=== PATIENT | female | born 2005 | race Caucasian/White ===

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

== ENCOUNTER 2023-04-17 18:13 | Emergency (ER) | payer MEDICAID ==
[~2023-04-17] VITALS: Ht 165.1 cm; Wt 86.2 kg
[~2023-04-17 18:13] MED LIST: CEFD300C3 PO; FLUT9.9S NS; LORA1TAB59 PO
[2023-04-17 18:18] VITALS: BP 119/92
[2023-04-17] MEDS ORDERED: TETANUS,DIPTH,PERTUSS P/F (BOOSTRIX) 0.5 ML VIAL IM ONE (18:30)
[2023-04-17] MEDS ORDERED: LIDOCAINE 1% INJ 20 ML VIAL INJ ONE (18:30)
[2023-04-17] MEDS ORDERED: RX-TRIMETH/SULFA. 160-800 MG (BACTRIM DS) TAB PPK#2 PO STA (18:57)
[2023-04-17] MEDS ORDERED: RX-MUPIROCIN (BACTROBAN) 2% OINT 22 GM TUBE TOP STA (18:57)
--- NOTE | 2023-04-17 18:57 | ED Integumentary General ---
General Chief Complaint: Skin/Wound Problems Stated Complaint: FOREIGN BODY IN [place] Nursing Triage Note: PT AMBULATORY TO ROOM. STATES SHE BELIEVES A "BALL" PIECE FROM HER [place] RING IS STUCK UNDER THE SKIN. STATES SHE NOTICED PRIOR TO ARRIVAL WHILE CHANGING HER CLOTHES Source: patient History of Present Illness Date Seen by Provider: Apr 17, 2023 Time Seen by Provider: 18:21 Initial Comments PT ARRIVES VIA POV PT STATES THAT HALF OF HER [place] PIERCING IS EMBEDDED UNDER THE SKIN STATES SHE WAS CHANGING HER CLOTHES AND HALF OF IT CAME OFF AND THINKS THAT THE OTHER HALF IS EMBEDDED UNDER THE SKIN, AND SHE CAN FEEL IT. METAL PART OF RING AND POSSIBLY THE BALL ARE MISSING AND THAT IS WHAT PT THINKS IS STILL EMBEDDED OCCURRED JUST PRIOR TO ARRIVAL SHE HAS HAD THIS AREA PIERCED TWICE IN OCTOBER NO BLEEDING OR PAIN OR DRAINAGE. LAST TETANUS IS UNKNOWN NO CHRONIC MEDICAL PROBLEMS PCP: LEE Allergies and Home Medications Allergies Coded Allergies: Penicillins (Verified Allergy, Unknown, 06/10/21) Patient Home Medication List Home Medication List Reviewed: Yes Cefdinir (Cefdinir) 300 Mg Capsule, 300 MG PO BID Prescribed by: LUIS JORDAN on 06/10/21 0503 Fluticasone Propionate (Flonase Allergy Relief) 9.9 Ml [place].susp, 2 SPRAY NS DAILY Prescribed by: LUIS JORDAN on 06/10/21 0503 Loratadine/Pseudoephedrine (Claritin-D 12 Hour Tablet) 1 Each Tab.er.12h, 1 EACH PO BID Prescribed by: LUIS JORDAN on 06/10/21 0503 Sulfamethoxazole/Trimethoprim (Bactrim Ds Tablet) 1 Each Tablet, 1 EACH PO BID Prescribed by: LUIS JORDAN on 04/17/23 1858 Review of Systems Review of Systems Constitutional: no symptoms reported Gastrointestinal: see HPI Skin: see HPI Past Tnpymaz-Ottfiu-Hwzuuf Hx Immunizations Up To Date Tetanus Booster (TDap): Unknown First/Initial COVID19 Vaccinat: 03/03/2021 Second COVID19 Vaccination [place]: 03/23/2021 Past Medical History Surgeries: Yes (DENTAL ) Respiratory: No Cardiac: No Neurological: No Genitourinary: No Gastrointestinal: No Musculoskeletal: No Endocrine: No HEENT: Yes Chronic Ear Infection Psychosocial: No Integumentary: No Blood Disorders: No Physical Exam Vital Signs Vital Signs - First Documented 04/17/23 18:18 Temp 36.6 Pulse 88 Resp 20 B/P (MAP) 119/92 (101) Pulse Ox 97 Capillary Refill : General Appearance: WD/WN, no apparent distress Gastrointestinal: other (SUPERIOR ASPECT OF UMBILICUS AT PIERCING SITE, WITH WHAT FEELS LIKE RETAINED FOREIGN BODY . NO BLEEDING. NO DRAINAGE, NO ERYTHEMA OR TENDERNESS. ) Skin: normal color, warm/dry, tattoos/piercings, other ( ABOVE) Procedures/Interventions I&D : Site: UMBILICUS AREA Blade Size: 11 I & D Procedure: sterile dressing applied Progress AREA CLEANSED WITH BETASEPT INJECTED WITH 1% LIDOCAINE PLAIN SMALL INCISIONS MADE AT PIERCING SITES AREA EXPLORED AND UNABLE TO IDENTIFY ANY FOREIGN BODY. XRAY TAKEN, NO METALLIC FOREIGN BODY IDENTIFIED. Progress/Results/Core Measures Results/Orders My Orders Orders - LUIS JORDAN DO Dipht,Pertuss(Acell),Tet Adult (Boostrix (04/17/23 18:30) Lidocaine 1% Inj 20 Ml (Xylocaine 1% Inj (04/17/23 18:30) Abdomen/Kub 1view (04/17/23 18:46) Rx-Mupirocin 2% Oint (Rx-Bactroban) (04/17/23 18:57) Rx-Trimeth/Sulfameth Ds Tab (Rx-Bactrim/ (04/17/23 18:57) Medications Given in ED Vital Signs/I&O 04/17/23 18:18 Temp 36.6 Pulse 88 Resp 20 B/P (MAP) 119/92 (101) Pulse Ox 97 Blood Pressure Mean: 101 Progress Progress Note : Progress Note DISCUSSED ANTICIPATED COURSE, WOUND CARE, SYMPTOMATIC TREATMENT, NEED FOR FOLLOW UP AND RETURN PRECAUTIONS. DPT VACCINATION GIVEN Departure Impression Primary Impression: EXAM FOR POSSIBLE FOREIGN BODY OF SKIN Additional Impression: Cojidcmkcq-whetqzedi-qhqxejc (DPT) vaccination administered at current visit Disposition: 01 HOME, SELF-CARE Condition: Stable Departure-Patient Inst. Decision time for Depature: 18:56 Referrals: NO,LOCAL PHYSICIAN (PCP/Family) Primary Care Physician Patient Instructions: Tdap (Tetanus, Diphtheria, Pertussis) Vaccine CDC Vaccine Information Statement (VIS), Wound Care (DC) Add. Discharge Instructions: CLEAN WOUND TWICE A DAY WITH ANTIBACTERIAL SOAP AND WATER, APPLY ANTIBIOTIC OINTMENT AND FRESH DRESSING TWICE A DAY TYLENOL AND MOTRIN NEEDED FOR PAIN TAKE ANTIBIOTICS PRESCRIBED FOLLOW UP WITH YOUR DR NEEDED All discharge instructions reviewed with patient and/or family. Voiced und erstanding. Scripts Sulfamethoxazole/Trimethoprim (Bactrim Ds Tablet) 1 Each Tablet 1 EACH PO BID, #15 TAB Prov: LUIS JORDAN DO 04/17/23 LUIS JORDAN DO Apr 17, 2023 18:57
[2023-04-17] MEDS ORDERED: SULF1TAB38 PO (18:58)
--- NOTE | 2023-04-17 19:26 | Diagnostic Imaging Report ---
INDICATION: Abdominal pain. EXAMINATION: Two views were obtained. FINDINGS: There is a right femoral catheter in place. There are postsurgical changes about the left groin. Bowel gas pattern is nonspecific. There is no abnormal abdominal calcification. IMPRESSION: Nonspecific bowel gas pattern. Dictated by: Dictated on workstation # [id number]
== END 2023-04-17 19:14 | disposition home or self-care (01) ==
LOC: EDUNIT# 18:13 → ER 18:14
DX: S30.851A Superficial foreign body of abdominal wall, initial encounter (principal); Z23 Encounter for immunization; Z88.0 Allergy status to penicillin; X58.XXXA Exposure to other specified factors, initial encounter
CPT/HCPCS: 74018; 90715

== ENCOUNTER 2023-04-26 21:31 | Emergency (ER) | payer MEDICAID ==
[~2023-04-26] VITALS: Ht 167.7 cm; Wt 88.3 kg
[~2023-04-26 21:31] MED LIST changes: +SULF1TAB38 PO
[2023-04-26] MEDS ORDERED: AZIT250T12 PO (21:54)
--- NOTE | 2023-04-26 21:55 | ED EENT ---
History of Present Illness General Chief Complaint: Ear Problems Stated Complaint: LEFT EARACHE Nursing Triage Note: PT AMB TO ED BY POV WITH C/O L EAR PAIN. PT REPORTS L EAR PAIN BEGINNING SATURDAY, NOW RADIATING INTO JAW. DENIES FEVER. Source: patient Exam Limitations: no limitations (AMBER LUEVANO) History of Present Illness Date Seen by Provider: Apr 26, 2023 Time Seen by Provider: 21:51 Initial Comments Patient is a 18-year-old female presents ED with left ear pain. Ear pain started on Saturday. She states pain is described as dull and fairly constant. This pain increased today with a sharp pain does radiate down the left ear and left jaw. No pain with eating. Denies any facial swelling or redness. Denies headache, dizziness, nausea, vomiting, recent upper respiratory infection. She attempted some eardrops for the pain but states this did not work. She denies taking thing oral. History of ear infections. She denies of any drainage. Denies any ear ringing or hearing loss. Denies chest pain, cough or shortness of breath. (AMBER LUEVANO) Allergies and Home Medications Allergies Coded Allergies: Penicillins (Verified Allergy, Unknown, 06/10/21) Patient Home Medication List Home Medication List Reviewed: Yes (AMBER LUEVANO) Azithromycin (Azithromycin) 250 Mg Tablet, 250 MG PO UD Prescribed by: DAMARI HASKINS on 04/26/232153 Cefdinir (Cefdinir) 300 Mg Capsule, 300 MG PO BID Prescribed by: LUIS JORDAN on 06/10/21 0503 Fluticasone Propionate (Flonase Allergy Relief) 9.9 Ml [place].susp, 2 SPRAY NS DAILY Prescribed by: LUIS JORDAN on 06/10/21 0503 Loratadine/Pseudoephedrine (Claritin-D 12 Hour Tablet) 1 Each Tab.er.12h, 1 EACH PO BID Prescribed by: LUIS JORDAN on 06/10/21 0503 Sulfamethoxazole/Trimethoprim (Bactrim Ds Tablet) 1 Each Tablet, 1 EACH PO BID Prescribed by: LUIS JORDAN on 04/17/23 0898 Review of Systems Review of Systems Constitutional: No chills, No diaphoresis, No malaise, No weakness Eyes: Denies Drainage, Denies Decreased Acuity Ears: Denies Dizziness; Pain; Denies Tinnitus, Denies Bloody Discharge, Denies Clear Discharge Nose: denies clots Mouth: denies clots, denies loose teeth Throat: denies pain, denies swelling, denies discharge Respiratory: No cough, No dyspnea on exertion Cardiovascular: No see HPI, No chest pain, No edema Gastrointestinal: No abdominal pain, No diarrhea, No nausea, No vomiting : Yes Musculoskeletal: No back pain Skin: No change in color, No change in hair/nails (AMBER LUEVANO) All Other Systems Reviewed Negative Unless Noted: Yes (AMBER LUEVANO) Past Ebkbusy-Zmubam-Tnxfuk Hx Patient Social History Tobacco Use?: No Use of E-Cig and/or Vaping dev: No Substance use?: No Alcohol Use?: No Pt feels they are or have been: No (AMBER LUEVANO) Immunizations Up To Date Tetanus Booster (TDap): Unknown Influenza Vaccine Up-to-Date: No; Not Current First/Initial COVID19 Vaccinat: X3 Second COVID19 Vaccination [place]: 03/23/2021 (AMBER LUEVANO) Past Medical History Surgeries: Yes (DENTAL ) Respiratory: No Cardiac: No Neurological: No Genitourinary: No Gastrointestinal: No Musculoskeletal: No Endocrine: No HEENT: Yes Chronic Ear Infection Psychosocial: No Integumentary: No Blood Disorders: No (AMBER LUEVANO) Physical Exam Vital Signs Vital Signs - First Documented 04/26/23 21:37 Temp 36.8 Pulse 87 Resp 16 B/P (MAP) 120/82 (95) Pulse Ox 99 O2 Delivery Room Air (JIGNESH BADILLO MD) Height, Weight, BMI Height: '" Weight: lbs. oz. 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 History of ear infections. Patient complain of left ear pain. Pain has gotten worse radiation to left lower ear and left jaw. No pain with eating. No evidence of facial swelling or erythema. No dental tenderness. No parotid, TMJ or mastoid tenderness. No recent URI symptoms. On exam she has erythematous left TM. Concern for potent ial otitis media. Mild effusion. Otherwise exam benign. Patient is allergic to penicillins. Will discharge with azithromycin. Recommend anti- inflammatories for pain. Discussed follow-up with your primary care physician in 2 to 3 days for reevaluation. If she starts to develop ear fullness may consider Sudafed. If any worsening symptoms such as facial swelling or redness, pain with eating to return back to ED. Patient agrees with plan of action. (AMBER LUEVANO) Impression Primary Impression: Otitis media Disposition: 01 HOME, SELF-CARE Condition: Stable Departure-Patient Inst. Decision time for Depature: 21:54 (AMBER LUEVANO) Referrals: [facility] [place] PHYSICIAN (PCP) Primary Care Physician Patient Instructions: Ear Infections (Otitis Media) in Adults (DC) Add. Discharge Instructions: Take antibiotics as prescribed. Anti-inflammatories for pain. May consider Sudafed decongestion for ear fullness. Follow-up your PCP in 2 to 3 days for reevaluation All discharge instructions reviewed with patient and/or family. Voiced understanding. Scripts Azithromycin (Azithromycin) 250 Mg Tablet 250 MG PO UD, #6 TAB TAKE 2 TABLETS ON DAY ONE THEN TAKE 1 TABLET DAILY FOR FOUR MORE DAYS Prov: AMBER LUEVANO 04/26/23 ATTENDING PHYSICIAN NOTE: I was physically present as attending physician in the emergency department during the care of this patient, but I was not directly involved in the decision making or delivery of care for this patient. (JIGNESH BADILLO MD) AMBER LUEVANO Apr 26, 2023 21:55 JIGNESH BADILLO MD Apr 27, 2023 08:18
[2023-04-26 22:03] VITALS: BP 120/82
== END 2023-04-26 22:03 | disposition home or self-care (01) ==
LOC: EDUNIT# 21:31 → ER 21:34
DX: H65.92 Unspecified nonsuppurative otitis media, left ear (principal); Z88.0 Allergy status to penicillin
CPT/HCPCS: 99282